=== PATIENT | female | born 1960 | race Caucasian/White ===

== ENCOUNTER 2017-01-17 18:40 | Emergency (ER) | payer MEDICARE, OTHER ==
[2017-01-17] MEDS ORDERED: Sodium Chloride 0.9% 10 ML Syringe FLUSH PRN (18:49)
[2017-01-17] MEDS ORDERED: Aspirin 81 MG Tab.Chew PO ONE (18:59)
[2017-01-17] MEDS ORDERED: HYDROmorphone 0.5 MG/0.5 ML Syringe IVPUSH ONE ×2 (19:13→19:55)
[2017-01-17] MEDS ORDERED: LORazepam 2 MG/ML MDV IVPUSH ONE (19:13)
--- NOTE | 2017-01-17 19:36 | EDM.PDOC ---
ED HISTORY OF PRESENT ILLNESS - General Chief Complaint: Chest Pain Stated Complaint: CHEST PAIN Time Seen by Provider: 01/17/17 18:49 Source of Information: Reports: Patient, RN notes reviewed - History of Present Illness INITIAL COMMENTS - FREE TEXT/NARRATIVE: 56 year old female with onset of mid chest pain about 4 hrs ago. Feels tight, mild radiation to L base of neck. Had just been at the clinic earlier today and felt well at that time. She feels mildly short of breath. The pain is worse with deep resp. Has not been coughing. No recent sore throat, fever chills. No abd pain, nausea, vomiting or diaphoresis. Hx type 2 diabetes. No personal hx htn or CAD. She does not smoke. - Related Data Allergies/ADRs: Allergies Allergy/AdvReac Type Severity Reaction Status Date / Time cinnamon Allergy Other Verified 01/30/16 17:12 moxifloxacin HCl Allergy Rash Verified 01/30/16 17:12 [From Avelox] Home Meds: Home Meds Aspirin [Halfprin] 81 mg PO DAILY 01/30/16 [History] Cinnamon Bark [Cinnamon] 500 mg PO DAILY 01/30/16 [History] Enalapril [Vasotec] 2.5 mg PO DAILY 01/30/16 [History] Gabapentin [Neurontin] 600 mg PO DAILY 01/30/16 [History] Gabapentin [Neurontin] 900 mg PO BEDTIME 01/30/16 [History] Ibuprofen [Advil] 200 mg PO DAILY 01/30/16 [History] Lansoprazole [Prevacid] 15 mg PO DAILY 01/30/16 [History] Levothyroxine Sodium [Synthroid] 175 mcg PO DAILY 01/30/16 [History] Metoclopramide [Reglan] 10 mg PO DAILY 01/30/16 [History] Metoprolol Succinate [Toprol XL 100mg] 100 mg PO DAILY 01/30/16 [History] Pregabalin [Lyrica] 150 mg PO BID 01/30/16 [History] Rosuvastatin [Crestor] 5 mg PO DAILY 01/30/16 [History] glyBURIDE [Glyburide] 5 mg PO DAILY 01/30/16 [History] metFORMIN HCl [Metformin HCl] 1,000 mg PO BID 01/30/16 [History] traZODone 50 mg PO BEDTIME 01/30/16 [History] Past Medical History HEENT History: Reports: Impaired vision Other HEENT History: wears glasses Cardiovascular History: Reports: Other (see below) Other Cardiovascular History: palpitations, PVCs Respiratory History: Reports: Other (see below) Other Respiratory History: difficult intubation Gastrointestinal History: Reports: GERD Other Gastrointestinal History: gastroparesis Genitourinary History: Reports: Other (see below) Other Genitourinary History: stress incontinence, nocturia 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: Musculoskeletal History: Reports: Back pain, chronic Neurological History: Reports: Neuropathy, diabetic Other Neuro History: cold intolerance Psychiatric History: Reports: Anxiety Endocrine/Metabolic History: Reports: Diabetes, type II, Hypothyroidism - Past Surgical History GI Surgical History: Reports: Cholecystectomy Musculoskeletal Surgical History: Reports: Other (see below) Other Musculoskeletal Surgeries/Procedures:: bilateral carpal tunnel release Social & Family History - Tobacco Use Smoking Status *Q: Never Smoker Second Hand Smoke Exposure: No - Caffeine Use Caffeine Use: Reports: Coffee, Tea - Alcohol Use Days Per Week of Alcohol Use: 0 Number of Drinks Per Day: 0 Total Drinks Per Week: 0 - Recreational Drug Use Recreational Drug Use: No Drug Use in Last 12 Months: No ED ROS GENERAL - Review of Systems Review Of Systems: See Below Constitutional: Denies: fever, chills, diaphoresis HEENT: Denies: Throat pain Respiratory: Reports: Shortness of Breath, Pleuritic Chest Pain. Denies: Wheezing Cardiovascular: Reports: Chest pain, Edema (mild lower extrem. ) GI/Abdominal: Denies: Abdominal pain, Nausea, Vomiting Musculoskeletal: Reports: neck pain. Denies: shoulder pain, arm pain, back pain Skin: Reports: no symptoms Neurological: Reports: No Symptoms ED EXAM, GENERAL - Physical Exam Exam: See Below General Appearance: alert, mild distress Eye Exam: bilateral eye: PERRL Throat/Mouth: Normal inspection, Normal oropharynx Head: atraumatic. No: facial swelling Neck: supple, full range of motion Respiratory/Chest: no respiratory distress, lungs clear, normal breath sounds, chest non-tender Cardiovascular: regular rate, rhythm GI/Abdominal: soft, non tender Back Exam: No: CVA tenderness (L), CVA tenderness (R) Extremities: normal inspection, normal range of motion. No: pedal edema, leg pain Neurological: alert, oriented, no motor/sensory deficits EKG INTERPRETATION EKG Date: 01/17/17 Rhythm: NSR [place]: normal P-wave: present QRS: normal ST-T: depressed (inverted t wave lead III) Course - Vital Signs Last Recorded V/S: Last Vital Signs Temp 97.3 F 01/17/17 18:46 Pulse 103 H 01/17/17 18:46 Resp 14 01/17/17 18:46 BP 125/66 01/17/17 18:46 Pulse Ox 100 01/17/17 18:46 - Orders/Labs/Meds Orders: Active Orders 24 hr Category Date Time Status EKG 12 Lead [EKG Documentation Completion] [RC] STAT Care 01/17/17 18:50 Active Peripheral IV Care [RC] . DIRECTED Care 01/17/17 18:50 Active Chest 1V Frontal [CR] Stat Exams 01/17/17 19:55 Taken Sodium Chloride 0.9% [Saline Flush] Med 01/17/17 18:49 Active 10 ml FLUSH ASDIRECTED PRN Peripheral IV Insertion Adult [OM.PC] Stat Oth 01/17/17 18:50 Ordered Medication Orders Sodium Chloride (Saline Flush) 10 ml FLUSH ASDIRECTED PRN PRN Reason: Keep Vein Open Last Admin: 01/17/17 19:27 Dose: 10 ml Labs: Laboratory Tests 01/17/17 01/17/17 01/17/17 Range/Units 19:00 19:00 19:00 WBC 8.17 (3.98-10.04) K/mm3 RBC 4.25 (3.98-5.22) M/mm3 Hgb 12.5 (11.2-15.7) gm/L Hct 36.8 (34.1-44.9) % MCV 86.6 (79.4-94.8) fl MCH 29.4 (25.6-32.2) pg MCHC 34.0 (32.2-35.5) g/dl RDW Std Deviation 39.4 (36.4-46.3) fL Plt Count 220 (182-369) K/mm3 MPV 9.4 (9.4-12.3) fl Neut % (Auto) 63.4 (34.0-71.1) % Lymph % (Auto) 26.3 (19.3-51.7) % Brown % (Auto) 8.8 (4.7-12.5) % Eos % (Auto) 1.2 (0.7-5.8) Baso % (Auto) 0.1 (0.1-1.2) % Neut # (Auto) 5.17 (1.56-6.13) K/mm3 Lymph # (Auto) 2.15 (1.18-3.74) K/mm3 Brown # (Auto) 0.72 H (0.24-0.36) K/mm3 Eos # (Auto) 0.10 (0.04-0.36) K/mm3 Baso # (Auto) 0.01 (0.01-0.08) K/mm3 D-Dimer, Quantitative 0.31 (0.19-0.59) mg/L Sodium 139 (136-145) mEq/L Potassium 4.0 (3.5-5.1) mEq/L Chloride 103 (98-107) mEq/L Carbon Dioxide 27 (21-32) mEq/L Anion Gap 13.0 (5-15) BUN 16 (7-18) mg/dL Creatinine 1.1 H (0.55-1.02) mg/dL Est Cr Clr Drug Dosing 48.36 mL/min Estimated GFR (MDRD) 52 (>60) mL/min BUN/Creatinine Ratio 14.5 (14-18) Glucose 204 H (74-106) mg/dL Calcium 9.5 (8.5-10.1) mg/dL Total Bilirubin 0.3 (0.2-1.0) mg/dL AST 11 L (15-37) U/L ALT 27 (14-59) U/L Alkaline Phosphatase 59 (46-116) U/L Troponin I < 0.017 (0.00-0.056) ng/mL Total Protein 7.2 (6.4-8.2) g/dl Albumin 4.0 (3.4-5.0) g/dl Globulin 3.2 gm/dL Albumin/Globulin Ratio 1.3 (1-2) 01/17/17 Range/Units 21:02 WBC (3.98-10.04) K/mm3 RBC (3.98-5.22) M/mm3 Hgb (11.2-15.7) gm/L Hct (34.1-44.9) % MCV (79.4-94.8) fl MCH (25.6-32.2) pg MCHC (32.2-35.5) g/dl RDW Std Deviation (36.4-46.3) fL Plt Count (182-369) K/mm3 MPV (9.4-12.3) fl Neut % (Auto) (34.0-71.1) % Lymph % (Auto) (19.3-51.7) % Brown % (Auto) (4.7-12.5) % Eos % (Auto) (0.7-5.8) Baso % (Auto) (0.1-1.2) % Neut # (Auto) (1.56-6.13) K/mm3 Lymph # (Auto) (1.18-3.74) K/mm3 Brown # (Auto) (0.24-0.36) K/mm3 Eos # (Auto) (0.04-0.36) K/mm3 Baso # (Auto) (0.01-0.08) K/mm3 D-Dimer, Quantitative (0.19-0.59) mg/L Sodium (136-145) mEq/L Potassium (3.5-5.1) mEq/L Chloride (98-107) mEq/L Carbon Dioxide (21-32) mEq/L Anion Gap (5-15) BUN (7-18) mg/dL Creatinine (0.55-1.02) mg/dL Est Cr Clr Drug Dosing mL/min Estimated GFR (MDRD) (>60) mL/min BUN/Creatinine Ratio (14-18) Glucose (74-106) mg/dL Calcium (8.5-10.1) mg/dL Total Bilirubin (0.2-1.0) mg/dL AST (15-37) U/L ALT (14-59) U/L Alkaline Phosphatase (46-116) U/L Troponin I < 0.017 (0.00-0.056) ng/mL Total Protein (6.4-8.2) g/dl Albumin (3.4-5.0) g/dl Globulin gm/dL Albumin/Globulin Ratio (1-2) Meds: Medications Generic Name Dose Route Start Last Admin Trade Name Freq PRN Reason Stop Dose Admin Sodium Chloride 10 ml 01/17/17 18:49 01/17/17 19:27 Saline Flush FLUSH 10 ml ASDIRECTED PRN Administration Keep Vein Open Discontinued Medications Generic Name Dose Route Start Last Admin Trade Name Radha PRN Reason Stop Dose Admin Acetaminophen 975 mg 01/17/17 19:55 01/17/17 19:59 Tylenol PO 01/17/17 19:56 975 mg NOW ONE Administration Aspirin 324 mg 01/17/17 18:59 01/17/17 19:21 Aspirin PO 01/17/17 19:00 324 mg ONETIME ONE Administration Hydromorphone HCl 0.5 mg 01/17/17 19:13 01/17/17 19:23 Dilaudid IVPUSH 01/17/17 19:14 0.5 mg ONETIME ONE Administration Hydromorphone HCl 0.5 mg 01/17/17 19:55 01/17/17 20:01 Dilaudid IVPUSH 01/17/17 19:56 0.5 mg ONETIME ONE Administration Lorazepam 0.25 mg 01/17/17 19:13 01/17/17 19:26 Ativan IVPUSH 01/17/17 19:14 0.25 mg ONETIME ONE Administration - Re-Assessments/Exams Free Text/Narrative Re-Assessment/Exam: 01/17/17 20:29 trop has come back neg. CXR is good. Labs otherwise normal. She has had some relief from ativan 0.25, dilaudid 0.25 IV. Still haveing some discomfort, Her EKG was good. Continues with sinus rythm, no ectopy. Will plan to check a 2 hr trop. 01/17/17 21:45 2 hr trop also neg. Continues to have mild discomfort, it is worse with deep breathing. D Dimer was neg. Departure - Departure Time of Disposition: 21:47 Disposition: Home, Self-Care 01 Condition: fair Clinical Impression: Atypical chest pain Instructions: Nonspecific Chest Pain Referrals: Eliezer Lowe MD [Primary Care Provider] - Forms: ED Department Discharge Additional Instructions: rest, continue current medications, advil or ibuprofen 400 mg 3 times daily for 2 to 3 days, you may take tylenol or 1/2 tab oxycodone in between doses for extra pain relief. See Dr Lowe Sunday or early next week for recheck, call for appt., return to ED if sx worsening in any way. - My Orders Last 24 Hours: My Active Orders 01/17/17 18:49 Sodium Chloride 0.9% [Saline Flush] 10 ml FLUSH ASDIRECTED PRN 01/17/17 18:50 EKG 12 Lead [EKG Documentation Completion] [RC] STAT Peripheral IV Care [RC] . DIRECTED Peripheral IV Insertion Adult [OM.PC] Stat 01/17/17 19:55 Chest 1V Frontal [CR] Stat - Assessment/Plan Last 24 Hours: My Active Orders 01/17/17 18:49 Sodium Chloride 0.9% [Saline Flush] 10 ml FLUSH ASDIRECTED PRN 01/17/17 18:50 EKG 12 Lead [EKG Documentation Completion] [RC] STAT Peripheral IV Care [RC] . DIRECTED Peripheral IV Insertion Adult [OM.PC] Stat 01/17/17 19:55 Chest 1V Frontal [CR] Stat
[2017-01-17] MEDS ORDERED: Acetaminophen 325 MG Tab PO ONE (19:55)
[2017-01-17 22:07] VITALS: BP 106/61
--- NOTE | 2017-01-18 07:22 | CR ---
Chest: Portable view of the chest was obtained. Comparison: Previous chest x-ray of 11/06/16. Heart size is normal. Tortuous thoracic aorta is seen. Lungs are clear. Bony structures are grossly intact. Impression: 1. Nothing acute is identified on frontal chest x-ray. Diagnostic code #1
== END 2017-01-17 22:00 | disposition home or self-care (01) ==
LOC: JD.ED 18:40
DX: R07.89 Other chest pain (principal); Z88.8 Allergy status to other drugs, medicaments and biological substances; Z91.02 Food additives allergy status; Z79.82 Long term (current) use of aspirin; Z79.899 Other long term (current) drug therapy; E11.40 Type 2 diabetes mellitus with diabetic neuropathy, unspecified; Z79.84 Long term (current) use of oral hypoglycemic drugs; E03.9 Hypothyroidism, unspecified; F41.9 Anxiety disorder, unspecified; K21.9 Gastro-esophageal reflux disease without esophagitis
CPT/HCPCS: 36415; 71010; 80053; 84484; 85025; 85379; 93005; A9270; J1170; J2060; J7050; 96374; 96375; 96376; 99285; 99285-25

== ENCOUNTER 2020-04-06 05:38 | Emergency (ER) | payer MEDICARE, OTHER ==
[2020-04-06 05:45] VITALS: BP 142/70; PULSE 86
[2020-04-06] MEDS ORDERED: Ondansetron 4 MG/2 ML SDV IVPUSH ONE (06:05)
--- NOTE | 2020-04-06 06:05 | EDM.PDOC ---
ED HPI GENERAL MEDICAL PROBLEM - General Chief Complaint: General Stated Complaint: [facility] Time Seen by Provider: 04/06/20 05:55 - History of Present Illness INITIAL COMMENTS - FREE TEXT/NARRATIVE: 59-year-old female presents the emergency room with nausea and lightheadedness. Patient awoke around 4 AM this morning with the sensation of significant nausea she thought she was going to vomit. She also had the sensation of lightheadedness she has a hard time describing it however states that the room was not spinning around her or she was not spinning in the room is just that she felt really lightheaded. This was not associated with palpitations shortness of breath breathing difficulties or chest pain. The patient felt fine when she went to bed. During the episode she tried to use a new blood sugar machine at home however the batteries were . Patient has not had problems like this in the past. Patient does have type 2 diabetes and has fairly extensive neuropathy. - Related Data Allergies Allergy/AdvReac Type Severity Reaction Status Date / Time cinnamon Allergy Other Verified 04/06/20 05:42 moxifloxacin HCl Allergy Rash Verified 04/06/20 05:42 [From Avelox] Home Meds: Home Meds Alpha Lipoic Acid 600 mg PO DAILY 04/06/20 [History] DULoxetine [Cymbalta] 10 mg PO BEDTIME 04/06/20 [History] Empagliflozin [Jardiance] 10 mg PO DAILY 04/06/20 [History] Enalapril [Vasotec] 2.5 mg PO DAILY 04/06/20 [History] Gabapentin [Neurontin] 1,800 mg PO BEDTIME 04/06/20 [History] Gabapentin [Neurontin] 900 mg PO DAILY 04/06/20 [History] Glimepiride 4 mg PO DAILY 04/06/20 [History] Levothyroxine [Synthroid] 50 mcg PO DAILY 04/06/20 [History] Metoclopramide HCl [Reglan] 10 mg PO DAILY 04/06/20 [History] Metoprolol Succinate 100 mg PO DAILY 04/06/20 [History] Multivit with Iron,Minerals [Complete Senior] 2 tab PO BID 04/06/20 [History] Pantoprazole Sodium [Protonix] 40 mg PO BID 04/06/20 [History] Pramipexole [Mirapex] 0.5 mg PO BEDTIME 04/06/20 [History] Rosuvastatin [Crestor] 5 mg PO DAILY 04/06/20 [History] metFORMIN [Glucophage] 1,000 mg PO BID 04/06/20 [History] oxyCODONE HCl/Acetaminophen [Oxycodon-Acetaminophen 7.5-300] 1 tab PO BEDTIME [History] Past Medical History HEENT History: Reports: Impaired Vision Other HEENT History: wears glasses Cardiovascular History: Reports: Other (See Below) Other Cardiovascular History: palpitations, PVCs Respiratory History: Reports: Other (See Below) Other Respiratory History: difficult intubation Gastrointestinal History: Reports: GERD Other Gastrointestinal History: gastroparesis Genitourinary History: Reports: Other (See Below) Other Genitourinary History: stress incontinence, nocturia 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: Musculoskeletal History: Reports: Back Pain, Chronic Neurological History: Reports: Neuropathy, Diabetic Other Neuro History: cold intolerance Psychiatric History: Reports: Anxiety Endocrine/Metabolic History: Reports: Diabetes, Type II, Hypothyroidism - Past Surgical History Female Surgical History: Reports: Hysterectomy, Tubal Ligation Musculoskeletal Surgical History: Reports: Other (See Below) Social & Family History - Caffeine Use Caffeine Use: Reports: Coffee, Tea ED ROS GENERAL - Review of Systems Review Of Systems: See Below Constitutional: Reports: No Symptoms HEENT: Reports: No Symptoms Respiratory: Reports: No Symptoms Cardiovascular: Reports: Lightheadedness. Denies: Chest Pain, Edema, Syncope Endocrine: Reports: High Glucose GI/Abdominal: Reports: Nausea. Denies: Abdominal Pain, Constipation, Diarrhea, Vomiting : Reports: No Symptoms Musculoskeletal: Reports: No Symptoms Skin: Reports: No Symptoms Neurological: Reports: Dizziness, Numbness (Chronic). Denies: Syncope Psychiatric: Reports: No Symptoms Hematologic/Lymphatic: Reports: No Symptoms ED EXAM, GENERAL - Physical Exam Exam: See Below Exam Limited By: No Limitations General Appearance: Alert, No Apparent Distress, Obese, Other (Patient is still nauseated the lightheadedness has resolved) Eye Exam: Bilateral Eye: EOMI, Normal Inspection, PERRL Ears: Normal External Exam, Normal Canal, Hearing Grossly Normal Nose: Normal Inspection, Normal Mucosa, No Blood Throat/Mouth: Normal Inspection, Normal Lips, Normal Gums, Normal Oropharynx, Normal Voice, No Airway Compromise. No: Normal Teeth Head: Atraumatic, Normocephalic Neck: Normal Inspection, Supple, Non-Tender, Full Range of Motion. No: Lymphadenopathy (L), Lymphadenopathy (R) Respiratory/Chest: No Respiratory Distress, Lungs Clear, Normal Breath Sounds Cardiovascular: Regular Rate, Rhythm, No Edema, No Murmur GI/Abdominal: Normal Bowel Sounds, Soft, Non-Tender Back Exam: Normal Inspection. No: CVA Tenderness (L), CVA Tenderness (R) Neurological: Alert, Oriented, CN II-XII Intact, Normal Cognition, No Motor/ Sensory Deficits Psychiatric: Normal Affect, Normal Mood Skin Exam: Warm, Dry, Intact EKG INTERPRETATION EKG Date: 04/06/20 Rhythm: NSR [place]: Normal P-Wave: Present QRS: Other (Possible early transition poor R wave development in the precordial leads most likely due to body habitus) ST-T: Other (Near isoelectric T's anteriorly) QT: Normal Comparison: Change From Previous EKG (Decreased R waves in the lateral leads compared to an EKG done December 2016 otherwise no significant change) Course - Vital Signs Last Recorded V/S: Last Vital Signs Temp 36.4 C 04/06/20 05:39 Pulse 86 04/06/20 05:39 Resp 16 04/06/20 05:39 BP 142/70 H 04/06/20 05:39 Pulse Ox 97 04/06/20 05:39 - Orders/Labs/Meds Orders: Active Orders 24 hr Category Date Time Status EKG Documentation Completion [RC] STAT Care 04/06/20 06:08 Active Labs: Laboratory Tests 04/06/20 04/06/20 Range/Units 05:45 05:45 WBC 8.42 (3.98-10.04) K/mm3 RBC 4.76 (3.98-5.22) M/mm3 Hgb 13.6 (11.2-15.7) gm/dl Hct 41.3 (34.1-44.9) % MCV 86.8 (79.4-94.8) fl MCH 28.6 (25.6-32.2) pg MCHC 32.9 (32.2-35.5) g/dl RDW Std Deviation 40.7 (36.4-46.3) fL Plt Count 259 (182-369) K/mm3 MPV 10.0 (9.4-12.3) fl Neut % (Auto) 51.5 (34.0-71.1) % Lymph % (Auto) 36.3 (19.3-51.7) % [place] % (Auto) 9.1 (4.7-12.5) % Eos % (Auto) 2.5 (0.7-5.8) Baso % (Auto) 0.5 (0.1-1.2) % Neut # (Auto) 4.33 (1.56-6.13) K/mm3 Lymph # (Auto) 3.06 (1.18-3.74) K/mm3 [place] # (Auto) 0.77 H (0.24-0.36) K/mm3 Eos # (Auto) 0.21 (0.04-0.36) K/mm3 Baso # (Auto) 0.04 (0.01-0.08) K/mm3 Sodium 141 (136-145) mEq/L Potassium 4.2 (3.5-5.1) mEq/L Chloride 103 (98-107) mEq/L Carbon Dioxide 27 (21-32) mEq/L Anion Gap 15.2 H (5-15) BUN 19 H (7-18) mg/dL Creatinine 1.0 (0.55-1.02) mg/dL Est Cr Clr Drug Dosing 51.34 mL/min Estimated GFR (MDRD) 57 (>60) mL/min BUN/Creatinine Ratio 19.0 H (14-18) Glucose 238 H (74-106) mg/dL Calcium 10.1 (8.5-10.1) mg/dL Total Bilirubin 0.4 (0.2-1.0) mg/dL AST 12 L (15-37) U/L ALT 23 (14-59) U/L Alkaline Phosphatase 56 (46-116) U/L Total Protein 7.1 (6.4-8.2) g/dl Albumin 3.8 (3.4-5.0) g/dl Globulin 3.3 gm/dL Albumin/Globulin Ratio 1.2 (1-2) Meds: Medications Discontinued Medications Generic Name Dose Route Start Last Admin Trade Name Freq PRN Reason Stop Dose Admin Lactated Ringer's 1,000 mls @ 999 mls/hr 04/06/20 07:17 04/06/20 07:42 Ringers, Lactated IV 04/06/20 08:17 999 mls/hr .BOLUS ONE Administration Ondansetron HCl 4 mg 04/06/20 06:05 04/06/20 06:12 Zofran IVPUSH 04/06/20 06:06 4 mg ONETIME ONE Administration - Re-Assessments/Exams Free Text/Narrative Re-Assessment/Exam: 04/06/20 08:18 Labs reviewed the patient looks a little dehydrated we are giving her a liter of LR she is doing better after the Zofran and getting the fluids she thinks she could go home without too much difficulty. As to what caused her symptoms I am suspicious of a hypoglycemic episode her blood sugar was in the 180s when EMS picked her up however, but this does not exclude hypoglycemia. She never really describe vertigo it was lightheadedness along with the nausea. EKG does not show any significant abnormalities. Electrolytes are normal. We will discharge her encourage fluids and give her some Zofran in case she needs it. Departure - Departure Time of Disposition: 08:20 Disposition: Home, Self-Care 01 Clinical Impression: Lightheadedness, Hypoglycemia - Discharge Information Referrals: Eliezer Lowe MD [Primary Care Provider] - Forms: ED Department Discharge Additional Instructions: Return to the emergency room with any questions problems or worsening symptoms. Push lots of fluids. Follow-up with your regular physician in 1 week, sooner if needed. Sepsis Event Note (ED) - Evaluation Sepsis Screening Result: No Definite Risk - Focused Exam Vital Signs: Vital Signs Temp Pulse Resp BP Pulse Ox 04/06/20 05:39 36.4 C 86 16 142/70 H 97 - My Orders Last 24 Hours: My Active Orders 04/06/20 06:08 EKG Documentation Completion [RC] STAT - Assessment/Plan Last 24 Hours: My Active Orders 04/06/20 06:08 EKG Documentation Completion [RC] STAT
[2020-04-06] MEDS ORDERED: Lactated Ringers 1,000 ML IV ONE (07:17)
== END 2020-04-06 09:34 | disposition home or self-care (01) ==
LOC: JD.ED 05:38
DX: E11.649 Type 2 diabetes mellitus with hypoglycemia without coma (principal); K21.9 Gastro-esophageal reflux disease without esophagitis; E11.40 Type 2 diabetes mellitus with diabetic neuropathy, unspecified; F41.9 Anxiety disorder, unspecified; E03.9 Hypothyroidism, unspecified; Z90.710 Acquired absence of both cervix and uterus; Z88.8 Allergy status to other drugs, medicaments and biological substances; Z79.899 Other long term (current) drug therapy; Z79.84 Long term (current) use of oral hypoglycemic drugs
CPT/HCPCS: 36415; 80053; 85025; 93005; 96361; 96374; 99284; J2405; J7120; 93010

== ENCOUNTER 2020-06-17 13:24 | Emergency (ER) | payer MEDICARE, OTHER ==
[2020-06-17 13:51] VITALS: BP 142/81; PULSE 107
--- NOTE | 2020-06-17 14:53 | EDM.PDOC ---
ED HPI GENERAL MEDICAL PROBLEM - General Chief Complaint: Respiratory Problem Stated Complaint: BODY ACHES,FEVER,HEADACHE,SORE THROAT Time Seen by Provider: 06/17/20 14:21 - History of Present Illness INITIAL COMMENTS - FREE TEXT/NARRATIVE: 59-year-old female presents the emergency room with a 10-day history of aches and pains cough fever and chest pain. Patient had a known exposure to COVID 2 weeks ago about 9 or 10 days ago she developed muscle pains and diarrhea. She has some cough associated with this. The aches and pains seem to be getting better as do the loose stools. However yesterday she developed some chest pain this is worse with deep breathing. The patient has a cough she says it is fairly mild nonproductive. Chest Pain Score (Numeric/FACES): 8 - Related Data Allergies Allergy/AdvReac Type Severity Reaction Status Date / Time cinnamon Allergy Other Verified 04/06/20 05:42 moxifloxacin HCl Allergy Rash Verified 04/06/20 05:42 [From Avelox] Home Meds: Home Meds Alpha Lipoic Acid 600 mg PO DAILY 04/06/20 [History] DULoxetine [Cymbalta] 10 mg PO BEDTIME 04/06/20 [History] Empagliflozin [Jardiance] 10 mg PO DAILY 04/06/20 [History] Enalapril [Vasotec] 2.5 mg PO DAILY 04/06/20 [History] Gabapentin [Neurontin] 1,800 mg PO BEDTIME 04/06/20 [History] Gabapentin [Neurontin] 900 mg PO DAILY 04/06/20 [History] Glimepiride 4 mg PO DAILY 04/06/20 [History] Levothyroxine [Synthroid] 50 mcg PO DAILY 04/06/20 [History] Metoclopramide HCl [Reglan] 10 mg PO DAILY 04/06/20 [History] Metoprolol Succinate 100 mg PO DAILY 04/06/20 [History] Multivit with Iron,Minerals [Complete Senior] 2 tab PO BID 04/06/20 [History] Pantoprazole Sodium [Protonix] 40 mg PO BID 04/06/20 [History] Pramipexole [Mirapex] 0.5 mg PO BEDTIME 04/06/20 [History] Rosuvastatin [Crestor] 5 mg PO DAILY 04/06/20 [History] metFORMIN [Glucophage] 1,000 mg PO BID 04/06/20 [History] oxyCODONE HCl/Acetaminophen [Oxycodon-Acetaminophen 7.5-300] 1 tab PO BEDTIME 04/06/20 [History] Azithromycin [Zithromax] 250 mg PO DAILY #6 tab 06/17/20 [Rx] Past Medical History HEENT History: Reports: Impaired Vision Other HEENT History: wears glasses Cardiovascular History: Reports: Other (See Below) Other Cardiovascular History: palpitations, PVCs Respiratory History: Reports: Other (See Below) Other Respiratory History: difficult intubation Gastrointestinal History: Reports: GERD Other Gastrointestinal History: gastroparesis Genitourinary History: Reports: Other (See Below) Other Genitourinary History: stress incontinence, nocturia FACTORER History: Reports: Musculoskeletal History: Reports: Back Pain, Chronic Neurological History: Reports: Neuropathy, Diabetic Other Neuro History: cold intolerance Psychiatric History: Reports: Anxiety Endocrine/Metabolic History: Reports: Diabetes, Type II, Hypothyroidism - Past Surgical History Female Surgical History: Reports: Hysterectomy, Tubal Ligation Musculoskeletal Surgical History: Reports: Other (See Below) Social & Family History - Family History Family Medical History: Noncontributory - Tobacco Use Smoking Status *Q: Never Smoker Second Hand Smoke Exposure: No - Caffeine Use Caffeine Use: Reports: Coffee, Tea ED ROS GENERAL - Review of Systems Review Of Systems: See Below Constitutional: Reports: Fever, Night Sweats HEENT: Reports: No Symptoms Respiratory: Reports: Pleuritic Chest Pain, Cough. Denies: Sputum Cardiovascular: Reports: No Symptoms Endocrine: Reports: No Symptoms GI/Abdominal: Reports: No Symptoms : Reports: No Symptoms Musculoskeletal: Reports: No Symptoms Skin: Reports: No Symptoms Neurological: Reports: No Symptoms ED EXAM, GENERAL - Physical Exam Exam: See Below Exam Limited By: No Limitations General Appearance: Alert, No Apparent Distress Eye Exam: Bilateral Eye: Normal Inspection Ears: Normal External Exam, Normal Canal, Hearing Grossly Normal, Normal TMs Nose: Normal Inspection, Normal Mucosa, No Blood Throat/Mouth: Normal Inspection, Normal Lips, Normal Gums, Normal Oropharynx, Normal Voice, No Airway Compromise Head: Atraumatic, Normocephalic Neck: Normal Inspection, Supple, Non-Tender, Full Range of Motion, Lymphadenopathy (R) (Small lymph node tender palpable angle of the right jaw). No: Lymphadenopathy (L) Respiratory/Chest: No Respiratory Distress, Lungs Clear, Normal Breath Sounds Cardiovascular: Regular Rate, Rhythm, No Edema, No Murmur GI/Abdominal: Normal Bowel Sounds, Soft, Non-Tender Back Exam: Normal Inspection. No: CVA Tenderness (L), CVA Tenderness (R) Extremities: Normal Inspection, No Pedal Edema Neurological: Alert, Oriented, Normal Cognition Psychiatric: Normal Affect, Normal Mood Skin Exam: Warm, Dry, Intact Course - Vital Signs Last Recorded V/S: Last Vital Signs Temp 36.1 C 06/17/20 13:47 Pulse 107 H 06/17/20 13:47 Resp 16 06/17/20 13:47 BP 142/81 H 06/17/20 13:47 Pulse Ox 93 L 06/17/20 13:47 - Orders/Labs/Meds Orders: Active Orders 24 hr Category Date Time Status EKG Documentation Completion [RC] STAT Care 06/17/20 16:44 Active Labs: Laboratory Tests 06/17/20 06/17/20 06/17/20 Range/Units 15:30 15:30 15:30 WBC 5.50 (3.98-10.04) K/mm3 RBC 5.04 (3.98-5.22) M/mm3 Hgb 14.3 (11.2-15.7) gm/dl Hct 42.3 (34.1-44.9) % MCV 83.9 (79.4-94.8) fl MCH 28.4 (25.6-32.2) pg MCHC 33.8 (32.2-35.5) g/dl RDW Std Deviation 40.3 (36.4-46.3) fL Plt Count 183 D (182-369) K/mm3 MPV 9.2 L (9.4-12.3) fl Neutrophils % (Manual) 64 H (40-60) % Band Neutrophils % 2 (0-10) % Lymphocytes % (Manual) 23 (20-40) % Atypical Lymphs % 0 % Monocytes % (Manual) 11 H (2-10) % Eosinophils % (Manual) 0 L (0.7-5.8) % Basophils % (Manual) 0 L (0.1-1.2) Platelet Estimate Adequate RBC Morph Comment Normal D-Dimer, Quantitative 0.29 (0.19-0.50) mg/L Sodium 135 L (136-145) mEq/L Potassium 3.9 (3.5-5.1) mEq/L Chloride 98 (98-107) mEq/L Carbon Dioxide 27 (21-32) mEq/L Anion Gap 13.9 (5-15) BUN 13 (7-18) mg/dL Creatinine 1.0 (0.55-1.02) mg/dL Est Cr Clr Drug Dosing 51.34 mL/min Estimated GFR (MDRD) 57 (>60) mL/min BUN/Creatinine Ratio 13.0 L (14-18) Glucose 135 H (74-106) mg/dL Calcium 9.5 (8.5-10.1) mg/dL Ferritin (8-252) ng/ml Total Bilirubin 0.4 (0.2-1.0) mg/dL AST 26 (15-37) U/L ALT 32 (14-59) U/L Alkaline Phosphatase 81 (46-116) U/L Lactate Dehydrogenase 232 (81-234) U/L Troponin I < 0.017 (0.00-0.056) ng/mL C-Reactive Protein 5.4 H* (<1.0) mg/dL Total Protein 8.1 (6.4-8.2) g/dl Albumin 3.6 (3.4-5.0) g/dl Globulin 4.5 gm/dL Albumin/Globulin Ratio 0.8 L (1-2) 06/17/ Range/Units 15:30 WBC (3.98-10.04) K/mm3 RBC (3.98-5.22) M/mm3 Hgb (11.2-15.7) gm/dl Hct (34.1-44.9) % MCV (79.4-94.8) fl MCH (25.6-32.2) pg MCHC (32.2-35.5) g/dl RDW Std Deviation (36.4-46.3) fL Plt Count (182-369) K/mm3 MPV (9.4-12.3) fl Neutrophils % (Manual) (40-60) % Band Neutrophils % (0-10) % Lymphocytes % (Manual) (20-40) % Atypical Lymphs % % Monocytes % (Manual) (2-10) % Eosinophils % (Manual) (0.7-5.8) % Basophils % (Manual) (0.1-1.2) Platelet Estimate RBC Morph Comment D-Dimer, Quantitative (0.19-0.50) mg/L Sodium (136-145) mEq/L Potassium (3.5-5.1) mEq/L Chloride (98-107) mEq/L Carbon Dioxide (21-32) mEq/L Anion Gap (5-15) BUN (7-18) mg/dL Creatinine (0.55-1.02) mg/dL Est Cr Clr Drug Dosing mL/min Estimated GFR (MDRD) (>60) mL/min BUN/Creatinine Ratio (14-18) Glucose (74-106) mg/dL Calcium (8.5-10.1) mg/dL Ferritin 237 (8-252) ng/ml Total Bilirubin (0.2-1.0) mg/dL AST (15-37) U/L ALT (14-59) U/L Alkaline Phosphatase (46-116) U/L Lactate Dehydrogenase (81-234) U/L Troponin I (0.00-0.056) ng/mL C-Reactive Protein (<1.0) mg/dL Total Protein (6.4-8.2) g/dl Albumin (3.4-5.0) g/dl Globulin gm/dL Albumin/Globulin Ratio (1-2) - Re-Assessments/Exams Free Text/Narrative Re-Assessment/Exam: 06/17/20 16:42 Chest x-ray is suspicious for developing left lower pneumonia. C-reactive protein is elevated d-dimer ferritin troponin are all normal we will start her on a Z-Mikal. She is comfortable going home she understands in no uncertain terms to return to the emergency room with any questions problems or worsening symptoms COVID test is pending Departure - Departure Time of Disposition: 17:06 Disposition: Home, Self-Care 01 Clinical Impression: Pneumonia, Viral syndrome - Discharge Information Prescriptions: Azithromycin [Zithromax] 250 mg PO DAILY #6 tab Referrals: Eliezer Lowe MD [Primary Care Provider] - Forms: ED Department Discharge Additional Instructions: Turn to the emergency room with any questions problems or worsening symptoms. Follow-up with your regular healthcare provider if needed early this next week. Push lots of fluids. Start probiotics see if this helps with your loose stools. You have been started on Zithromax, this is an antibiotic for the possible pneumonia. Take as directed. Your COVID test is pending. As much as possible you should sit date isolation for at least 72 hours after you are absolutely symptom-free and have not taken any medications to control your symptoms. Sepsis Event Note (ED) - Evaluation Sepsis Screening Result: No Definite Risk - Focused Exam Vital Signs: Vital Signs Temp Pulse Resp BP Pulse Ox 06/17/20 13:47 36.1 C 107 H 16 142/81 H 93 L - My Orders Last 24 Hours: My Active Orders 06/17/20 16:44 EKG Documentation Completion [RC] STAT - Assessment/Plan Last 24 Hours: My Active Orders 06/17/20 16:44 EKG Documentation Completion [RC] STAT
--- NOTE | 2020-06-17 16:17 | CR ---
Chest: Portable view of the chest was obtained. Comparison: Prior chest x-ray of 01/17/17. Vague increased density within left mid and lower lung as an interval change from prior study. Lungs otherwise are clear. Heart size and mediastinum are normal. Bony structures are unremarkable. Impression: 1. Vague increased density of the left mid lower lung raising the possibility of pneumonia. Diagnostic code #3 This report was dictated in MDT
== END 2020-06-17 17:30 | disposition home or self-care (01) ==
LOC: JD.ED 13:24
DX: J18.9 Pneumonia, unspecified organism (principal); B34.9 Viral infection, unspecified; K21.9 Gastro-esophageal reflux disease without esophagitis; E11.40 Type 2 diabetes mellitus with diabetic neuropathy, unspecified; E11.43 Type 2 diabetes mellitus with diabetic autonomic (poly)neuropathy; K31.84 Gastroparesis; E03.9 Hypothyroidism, unspecified; F41.9 Anxiety disorder, unspecified; Z88.1 Allergy status to other antibiotic agents; Z91.018 Allergy to other foods; Z79.899 Other long term (current) drug therapy
CPT/HCPCS: 36415; 71045; 71045-26; 80053; 82728; 83615; 84484; 85007; 85027; 85379; 86140; 93005; 93010; 99283; 99285-25

== ENCOUNTER 2023-02-25 21:24 | Emergency (ER) | payer MEDICARE, OTHER ==
[2023-02-25 21:37] VITALS: PULSE 91
[2023-02-25] MEDS ORDERED: Alum Hydrox/Mag Hydrox/Simeth 30 ML, Lidocaine 2% 15 ML PO STA ×2 (21:53)
[2023-02-25] MEDS ORDERED: Sodium Chloride 0.9% 1,000 ML IV SCH (22:00)
[2023-02-25 22:12] LABS: D-DIMER QUANTITATIVE 0.33 mg/L (0.19-0.50); PROTHROMBIN TIME 9.3 SECONDS (9.7-12.0)
[2023-02-25 22:14] LABS: BASOPHILS ABSOLUTE AUTO 0.03 K/mm3 (0.01-0.08); BASOPHILS PERCENT AUTO 0.3 % (0.1-1.2); HEMATOCRIT 40.5 % (34.1-44.9); HEMOGLOBIN 13.5 gm/dl (11.2-15.7); IMMATURE GRAN ABSOLUTE AUTO 0.03 K/mm3 (0.00-0.10); IMMATURE GRAN PERCENT AUTO 0.3 % (<=1.0); LYMPHOCYTES ABSOLUTE AUTO 2.59 K/mm3 (1.18-3.74); MEAN CORPUSCULAR HEMOGLOBIN 28.1 pg (25.6-32.2); MEAN CORPUSCULAR HGB CONC 33.3 g/dl (32.2-35.5); MEAN CORPUSCULAR VOLUME 84.4 fl (79.4-94.8); MEAN PLATELET VOLUME 10.4 fl (9.4-12.3); MONOCYTES ABSOLUTE AUTO 0.61 K/mm3 (0.24-0.36); MONOCYTES PERCENT AUTO 5.9 % (4.7-12.5); NEUTROPHILS ABSOLUTE AUTO 7.02 K/mm3 (1.56-6.13); NEUTROPHILS PERCENT AUTO 67.5 % (34.0-71.1); PLATELET COUNT,PLT 238 K/mm3 (182-369); PTT,PARTIAL THROMBOPLSTIN TIME 25.4 SECONDS (21.7-31.4); WHITE BLOOD CELL COUNT,WBC 10.38 K/mm3 (3.98-10.04)
[2023-02-25 22:22] LABS: A/G RATIO 0.8 (1-2); ALBUMIN 3.4 g/dl (3.4-5.0); ANION GAP 12.3 (5-15); BILIRUBIN TOTAL 0.4 mg/dL (0.2-1.0); BUN/CREATININE RATIO 15.8 (14-18); CALCIUM 9.9 mg/dL (8.5-10.1); CREATININE 1.2 mg/dL (0.55-1.02); EST CRCL DRUG DOSING (CG) 48.48 mL/min; INR < 0.93; MAGNESIUM 1.4 mg/dL (1.8-2.4); POTASSIUM,K 4.3 mEq/L (3.5-5.1); PROTEIN TOTAL,TP 7.5 g/dl (6.4-8.2)
[2023-02-25] MEDS ORDERED: Sodium Chloride 0.9% 1,000 ML IV ONE (23:23)
[2023-02-25] MEDS ORDERED: Insulin Regular, Human 100 Units/ML 3 ML Vial IV STA (23:23)
[2023-02-25] MEDS ORDERED: Magnesium Sulfate/Water 4 GM in Premix Bag 1 BAG IV ONE (23:34)
[2023-02-26 01:01] LABS: APPEARANCE,URINE CLEAR (Clear); BILIRUBIN,URINE NEGATIVE (Negative); COLOR,URINE LIGHT YELLOW (Yellow); GLUCOSE,URINE 2+ (Negative); KETONES,URINE 1+ (Negative); LEUKOCYTE ESTERASE,URINE NEGATIVE (Negative); NITRITE,URINE NEGATIVE (Negative); OCCULT BLOOD,URINE NEGATIVE (Negative); PROTEIN,URINE NEGATIVE (Negative); UROBILINOGEN,URINE 0.2 (0.2-1.0)
[2023-02-26 01:07] LABS: BACTERIA,URINE RARE /hpf (FEW); RBC,URINE 0-5 /hpf (0-5); SQUAMOUS EPITHELIAL CELLS,UR 0-5 /hpf (0-5); WBC,URINE 0-5 /hpf (0-5)
[2023-02-26 01:08] LABS: MUCUS,URINE NOT SEEN /hpf (FEW)
[2023-02-26] MEDS ORDERED: Acetaminophen 325 MG Tab PO ONE (02:07)
[2023-02-26] MEDS ORDERED: Insulin Regular, Human 100 Units/ML 3 ML Vial IV ONE (03:08)
[2023-02-26] MEDS ORDERED: Insulin Regular, Human 100 Units/ML 3 ML Vial IV STA (05:11)
[2023-02-26 06:33] VITALS: BP 114/40
== END 2023-02-26 06:28 | disposition home or self-care (01) ==
LOC: JD.ED 21:24
DX: R07.2 Precordial pain (principal); R30.0 Dysuria; K21.9 Gastro-esophageal reflux disease without esophagitis; E11.40 Type 2 diabetes mellitus with diabetic neuropathy, unspecified; E03.9 Hypothyroidism, unspecified; E66.9 Obesity, unspecified; Z68.34 Body mass index [BMI] 34.0-34.9, adult; Z91.048 Other nonmedicinal substance allergy status; Z91.018 Allergy to other foods; Z88.1 Allergy status to other antibiotic agents; Z88.8 Allergy status to other drugs, medicaments and biological substances; Z79.899 Other long term (current) drug therapy; Z79.84 Long term (current) use of oral hypoglycemic drugs; Z86.16 Personal history of COVID-19
CPT/HCPCS: 36415; 71275; 75635; 80053; 81001; 82947; 83735; 83880; 84484; 85025; 85379; 85610; 85730; 93005; 96361; 96365; 96366; 99285; A9270; J1815; J3475; J7030; 93010; 99284

== ENCOUNTER 2023-06-08 15:34 | Emergency (ER) | payer MEDICARE, OTHER ==
[2023-06-08 19:17] VITALS: BP 128/65; PULSE 68
== END 2023-06-08 18:45 | disposition home or self-care (01) ==
LOC: JD.ED 15:34
DX: S00.03XA Contusion of scalp, initial encounter (principal); R07.81 Pleurodynia; R68.84 Jaw pain; M25.521 Pain in right elbow; E03.9 Hypothyroidism, unspecified; E78.00 Pure hypercholesterolemia, unspecified; E11.9 Type 2 diabetes mellitus without complications; E66.9 Obesity, unspecified; Z68.41 Body mass index [BMI] 40.0-44.9, adult; Z86.16 Personal history of COVID-19; Z88.1 Allergy status to other antibiotic agents; Z91.048 Other nonmedicinal substance allergy status; Z79.899 Other long term (current) drug therapy; Z79.84 Long term (current) use of oral hypoglycemic drugs; Z90.49 Acquired absence of other specified parts of digestive tract; Z90.710 Acquired absence of both cervix and uterus; W06.XXXA Fall from bed, initial encounter
CPT/HCPCS: 70450; 70450-26; 70486; 70486-26; 71101-26-RT; 71101-RT; 73080-26-RT; 73080-RT; 99284

== ENCOUNTER 2024-03-23 14:23 | Emergency (ER) | payer MEDICARE, OTHER ==
[2024-03-23 14:57] LABS: BASOPHILS PERCENT AUTO 0.3 % (0.0-1.0); EOSINOPHILS ABSOLUTE AUTO 0.1 K/mm3 (0.0-0.4); EOSINOPHILS PERCENT AUTO 1.1 % (0.0-6.0); HEMATOCRIT 41.6 % (37.0-47.0); HEMOGLOBIN 14.4 gm/dl (12.0-16.0); IMMATURE GRAN ABSOLUTE AUTO 0.07 K/mm3 (0.00-0.05); IMMATURE GRAN PERCENT AUTO 0.5 % (0.0-0.4); LYMPHOCYTES ABSOLUTE AUTO 2.3 K/mm3 (1.0-4.8); MEAN CORPUSCULAR HEMOGLOBIN 29.7 pg (28.0-32.0); MEAN CORPUSCULAR HGB CONC 34.6 g/dl (32.0-36.0); MEAN CORPUSCULAR VOLUME 85.8 fl (83.0-99.0); MEAN PLATELET VOLUME 9.5 fl (9.4-12.3); MONOCYTES PERCENT AUTO 7.8 % (0.0-8.0); NEUTROPHILS ABSOLUTE AUTO 9.7 K/mm3 (1.8-7.7); NEUTROPHILS PERCENT AUTO 73.3 % (41.0-71.0); PLATELET COUNT,PLT 269 K/mm3 (150-400); RED BLOOD CELL COUNT 4.85 M/mm3 (4.10-5.30); WHITE BLOOD CELL COUNT,WBC 13.26 K/mm3 (3.9-11.3)
[2024-03-23 15:03] VITALS: PULSE 102
[2024-03-23 15:21] LABS: INR < 0.93; PROTHROMBIN TIME 9.6 SECONDS (9.7-12.0)
[2024-03-23 15:26] LABS: A/G RATIO 1.1 (1-2); ALANINE AMINOTRANSFERASE,ALT 23 U/L (14-59); ALBUMIN 3.8 g/dl (3.4-5.0); ALKALINE PHOSPHATASE 77 U/L (46-116); ANION GAP 14.4 (5-15); ASPARTATE AMNIOTRANSFERASE,AST 10 U/L (15-37); BILIRUBIN TOTAL 0.4 mg/dL (0.2-1.0); BLOOD UREA NITROGEN,BUN 16 mg/dL (7-18); BUN/CREATININE RATIO 12.3 (14-18); CALCIUM 10.3 mg/dL (8.5-10.1); CARBON DIOXIDE,CO2 28 mEq/L (21-32); CHLORIDE,CL 97 mEq/L (98-107); CREATININE 1.3 mg/dL (0.55-1.02); ESTIMATED GFR 47 mL/min (>60); GLUCOSE RANDOM 268 mg/dL (70-99); MAGNESIUM 1.4 mg/dL (1.8-2.4); POTASSIUM,K 4.4 mEq/L (3.5-5.1); PROTEIN TOTAL,TP 7.4 g/dl (6.4-8.2); SODIUM,NA 135 mEq/L (136-145); TROPONIN I HIGH SENSITIVITY 4 pg/mL (<=51)
[2024-03-23] MEDS: Magnesium Sulfate/Water 2 GM in Premix Bag 1 BAG IV ONE (15:39)
[2024-03-23] MEDS: Acetaminophen 325 MG Tab PO ONE (19:03)
[2024-03-23] MEDS: Alum Hydrox/Mag Hydrox/Simeth 30 ML, Lidocaine 2% 15 ML PO ONE (19:18)
[2024-03-23] MEDS: Aluminum Hydroxide/Magnesium Hydroxide/Simethicone Susp 30 ML Cup ONE (19:27)
[2024-03-23] MEDS: Lidocaine 2% Viscous Solution 15 ML UD ONE (19:27)
[2024-03-23 23:51] VITALS: BP 124/62
== END 2024-03-23 22:00 | disposition home or self-care (01) ==
LOC: JD.ED 14:23
DX: R07.89 Other chest pain (principal); E78.00 Pure hypercholesterolemia, unspecified; K21.9 Gastro-esophageal reflux disease without esophagitis; E11.40 Type 2 diabetes mellitus with diabetic neuropathy, unspecified; E03.9 Hypothyroidism, unspecified; Z86.16 Personal history of COVID-19; Z88.8 Allergy status to other drugs, medicaments and biological substances; Z91.048 Other nonmedicinal substance allergy status; Z79.899 Other long term (current) drug therapy; Z79.84 Long term (current) use of oral hypoglycemic drugs
CPT/HCPCS: 36415; 71045; 80053; 83735; 83880; 84484; 85025; 85379; 85610; 85730; 93005; 96365; 96366; 99285; A9270; J3475; 71250; 71250-26; 93010; 99284